=== PATIENT | male | born 1995 | race Caucasian/White ===

== ENCOUNTER 2025-02-22 10:59 | Observation (INO) | payer BC, SELFPAY ==
[2025-02-22] VITALS (10 sets, daily range): BP systolic 93–129; BP diastolic 48–86; PULSE 66–109; RESP 14–18; TEMP 35.6–37.2; O2SAT 94–100; BMI 21.8
[2025-02-22 11:31] LABS: Absolute Lymphocyte Count 1.18 X10^3/uL (0.83-4.51); Absolute Neutrophil Count 14.1 X10^3/uL (2.0-7.7); Basophil# 0.04 X10^3/uL; Basophil% 0.2 % (0-1); Eosinophil# 0.07 X10^3/uL; Eosinophils% 0.4 % (0-5); Hematocrit 43.7 % (40-54); Lymphocyte # 1.18 X10^3/ul (0.83-4.51); Mean Corp Hgb Conc 36.6 g/dL (32-36); Mean Corpuscular Hgb 32.5 pg (27.0-32.0); Mean Corpuscular Volume 88.6 fL (80-94); Mean Platelet Vol. 9.5 fl (6.2-12.0); Monocyte% 8.3 % (0-10); NRBC Flagged by Analyzer 0 % (0-5); Neutrophil # 14.12 X10^3/uL (2.7-7.7); Neutrophil % 83.7 % (47-70); Platelet Count 190 K/mm3 (150-450); RBC Distribution Width CV 11.3 % (11.6-14.6); RBC Distribution Width SD 36.2 fl (35.1-43.9); Red Blood Count 4.93 M/mm3 (4.6-6.2); White Blood Count 16.9 K/mm3 (4.4-11.0)
[2025-02-22 12:08] LABS: ALB/GLOB Ratio 1.6 RATIO (0.9-2.4); AST(SGOT) 26 U/L (<=37); Alanine Aminotransfer ALT/SGPT 34 U/L (<=46); Albumin, Serum 4.5 g/dL (3.5-5.0); Alkaline Phosphatase 51 U/L (40-129); Anion Gap 11 (5-15); BUN 12 mg/dL (4-19); Calcium,Total 9.4 mg/dL (7.6-11.0); Carbon Dioxide 26.2 mmol/L (21.0-32.0); Chloride 100 mmol/L (98-108); Creatinine, Serum 0.91 mg/dL (0.70-1.20); EST Glomerular Filtration Rate 117 (>60); Estimated Creatinine Clearance 115.98 ml/min (50-250); Globulin 2.7 g/dL (2.2-4.2); Glucose 102 mg/dL (70-99); Lipase 10 U/L (13-75); Potassium 3.9 mmol/L (3.3-5.1); Protein, Total 7.2 g/dL (5.9-8.4); Sodium Level 137 mmol/L (133-145)
--- NOTE | 2025-02-22 13:04 | CT_ITS ---
PROCEDURE: ABDOMEN/PELVIS W IV CONT ONLY 02/22/2025 REASON FOR EXAM: RLQ PAIN TECHNIQUE: ABDOMEN/PELVIS W IV CONT ONLY Coronal and Sagittal reconstruction series were provided. CONTRAST: 100 mL of Isovue 370 One or more dose reduction techniques were used (e.g., Automated exposure control, adjustment of the mA and/or kV according to patient size, use of iterative reconstruction technique. RADIATION DOSE SUMMARY: DLP: 504 mGycm COMPARISON: None FINDINGS: Limited sections of the lung bases demonstrate no focal pulmonary mass or consolidations. The liver, spleen, pancreas, and both adrenal glands demonstrate no acute findings. Mild hepatomegaly to 16.5 cm in CC dimension. The gallbladder is unremarkable. The stomach is unremarkable. Scattered small bowel wall thickening inflammation and fluid may reflect enteritis. Inflamed appendix with appendicolith ( series 2, image 82) concerning for acute appendicitis. No periappendiceal abscess. No perforation. No bowel obstruction. No colonic obstruction. There is no free air or significant free fluid. The kidneys are unremarkable. The urinary bladder is partially distended. The pelvic structures are intact. There is no solid pelvic mass. No significant lymphadenopathy. The aorta and IVC demonstrate no acute findings. Visualized osseous structures demonstrate no acute abnormality. L5 pars defect of the left. CT/Abdomen/Pelvis W IV Cont ONLY IMPRESSION: Inflamed appendix with appendicolith ( series 2, image 82) concerning for acute appendicitis. No periappendiceal abscess. No perforation. No bowel obstruction. Scattered small bowel wall thickening, inflammation, and fluid may reflect ente ritis. Reading Location: [id number]
[2025-02-22] MEDS: Ondansetron 4 MG/2 ML Vial IV (13:14)
[2025-02-22] MEDS: Morphine 4 MG/ML Syringe IV (13:14)
[2025-02-22 13:58] LABS: Bacteria 0 SEEN /hpf (None Seen); Mucous, Urine 0 SEEN /hpf (<or=2+); Red Blood Cells-Urine 0 SEEN /hpf (0-5); Squamous Epithelial Cells - UA 0 SEEN /hpf (0-5); White Blood Cells 0 SEEN /hpf (0-5)
--- NOTE | 2025-02-22 13:58 | EX.ED.DYSGE1 ---
HPI History of Present Illness Chief Complaint: Abd Pain Narrative Narrative: Patient is a 29-year-old male with no known significant past medical history who presents to the emergency department chief complaint of abdominal pain. Patient states that his abdominal pain started yesterday evening and states that it been progressively worsening. He states that he tried to take Pepto-Bismol without any relief. Patient denies any previous abdominal surgery denies any sick contacts. He rates his pain an 8 out of 10. PFSH PFSH Medical History no medical history Allergy/AdvReac Type Severity Reaction Status Date / Time No Known Allergies Allergy Verified 02/22/25 11:02 Social History Smoking Status: Never smoker ROS ROS ED ROS Narrative Constitutional: Denies fevers, chills, headaches, lightness, dizziness Eyes: Denies change of double vision blurry vision Cardiovascular: Denies chest pain Respiratory: Denies shortness of breath Abdomen: Complains of abdominal pain and nausea denies vomiting or diarrhea : Denies any urinary symptoms Neurological: Denies numbness, weakness, tingling Musculoskeletal: Denies back pain Skin: Denies rashes or lesions EXAM Physical Exam Narrative Exam Narrative: General: Patient was lying in bed rest comfortably did not appear to be acute distress Head: Atraumatic, normocephalic Eyes: PERRL bilaterally, EOMI bilateral, no conjunctival injection noted Neck: Soft, supple, trachea midline Cardiovascular: Regular rate and rhythm no murmurs gallops rubs noted Respiratory: Clear to auscultation bilaterally no rales rhonchi or wheezes noted Abdomen: Soft, nondistended, tenderness to palpation in the right lower quadrant no rebound or guarding on exam Extremities: +5/5 strength noted in the bilateral upper and lower extremities, radial pulse +2/4 in the bilateral extremities, no pedal edema on exam Neurological: Patient follow commands knew that he was at [facility] the year is 2024 Skin: Warm, dry, tact no rashes or lesions noted Const Vital Signs: 02/22/25 11:00 02/22/25 13:14 Temperature 96.0 F L Temperature Source Oral Pulse Rate 73 66 Respiratory Rate 16 18 Blood Pressure 128/83 H 129/83 H Blood Pressure Mean 98 98 Pulse Ox 100 100 Oxygen Delivery Method Room Air Room Air MDM MDM MDM Narrative Medical decision making narrative: Patient is a 29-year-old male who presented to the emergency department chief complaint of abdominal pain. On the differential diagnosis includes but not limited to appendicitis,, pancreatitis urinary tract infection, pyelonephritis,. Once workup is obtained reviewed he will be reevaluated. Patient got IV fluids morphine Zofran. Urolithiasis Patient CBC reviewed was significant for leukocytosis of 17,000, hemoglobin 16, platelet count was 190. Patient sodium was 137, Tessman 3.9, creatinine normal at 0.91. Patient's AST and ALT were 26 and 34 respectively patient CBC reviewed was significant for leukocytosis of 17,000, hemoglobin 16, platelet count was 190. Patient sodium is 137, potassium normal at 3.9, creatinine normal at 0.91. Patient's AST and ALT were 26 and 34 respectively lipase was noted be 10. Patient urinalysis reviewed showed no evidence of infection. Patient CT abdomen pelvis IV contrast reviewed and showed acute appendicitis no abscess no perforation. Dr. Lane physician psychologist research assistant Caren came down and discussed with me and states that they are planning on taking the patient to the operating room at 3:30 PM this afternoon depending the official read which once again this just came back and is confirmation of appendicitis. Requesting Zosyn which was ordered. Patient was updated the plan is agreeable all course concerns answered. Lab Data Labs: Laboratory Results - last 24 hr 02/22/25 02/22/25 11:20 13:51 WBC 16.9 H RBC 4.93 Hgb 16.0 Hct 43.7 MCV 88.6 MCH 32.5 H MCHC 36.6 H RDW Std Deviation 36.2 RDW Coeff of Linda 11.3 L Plt Count 190 MPV 9.5 Immature Gran % (Auto) 0.400 Neut % (Auto) 83.7 H Lymph % (Auto) 7.0 L Gates % (Auto) 8.3 Eos % (Auto) 0.4 Baso % (Auto) 0.2 Absolute Neuts (auto) 14.1 H Absolute Lymphs (auto) 1.18 Nucleated RBC % 0 Sodium 137 Potassium 3.9 Chloride 100 Carbon Dioxide 26.2 Anion Gap 11 BUN 12 Creatinine 0.91 Estim Creat Clear Calc 115.98 Est GFR (MDRD) Non-Af 117 BUN/Creatinine Ratio 13.0 Glucose 102 H Calcium 9.4 Total Bilirubin 0.90 AST 26 ALT 34 Alkaline Phosphatase 51 Total Protein 7.2 Albumin 4.5 Globulin 2.7 Albumin/Globulin Ratio 1.6 Lipase 10 L Urine Color Yellow Urine Clarity Clear Urine pH 6.5 Ur Specific [place] 1.010 Urine Protein 15 H Urine Glucose (UA) Normal Urine Ketones 5 H Urine Occult Blood Negative Urine Nitrite Negative Urine Bilirubin Negative Urine Urobilinogen Normal Ur Leukocyte Esterase Negative Urine RBC 0 SEEN Urine WBC 0 SEEN Ur Squamous Epith Cells 0 SEEN Urine Bacteria 0 SEEN Urine Mucus 0 SEEN Radiography Diagnostic Testing: Clinical Impression(s) from Imaging Studies Abdomen/Pelvis CT 02/22/25 13:04 IMPRESSION: Inflamed appendix with appendicolith ( series 2, image 82) concerning for acute appendicitis. No periappendiceal abscess. No perforation. No bowel obstruction. Scattered small bowel wall thickening, inflammation, and fluid may reflect enteritis. Reading Location: [facility] Discharge Plan Triage Chief Complaint: Abd Pain ED Provider: Samy Douglas Dx/Rx/DC Orders Clinical Impression: Appendicitis, Abdominal pain Primary Care Provider: Cony Esparza NP Referrals: Cony Esparza NP, INTERLOCKING INSTALLER-C [Primary Care Provider] - Print Language: Romansh Disposition Disposition: Acute Care [facility]
[2025-02-22 14:04] LABS: Color, Urine Yellow (Yellow); Glucose, Dipstick Normal (Normal); Ketone-Dipstick 5 mg/dl (Negative); Leukocyte Esterase-Dipstick Negative /ul (Negative); Nitrite-Dipstick Negative (Negative); Occult Blood-Urine Negative /ul (Negative); Protein-Dipstick 15 mg/dl (Negative); Urine Bilirubin Dipstick Negative (Negative); Urine Clarity Clear (Clear); Urine Urobilinogen Normal (Normal); Urine pH 6.5 (5.0 - 8.0)
--- NOTE | 2025-02-22 14:19 | PCM.PRE.AN2 ---
ASA Classification* ASA Classification ASA Classification: 2 and E Assessment & Plan Anesthesia* Anesthesia Assessment Anesthesia Assessment: Discussed sedation and/or anesthesia options, risks, benefits, and alternatives with patient/parents/legal guardian/POA. Questions invited. The patient/parents/legal guardian/POA seems to understand and agrees to proceed with anesthesia plan. Reviewed the physical assessment, medical history, allergy history and patient home medications list prior to surgery/procedure/anesthetic and documented any changes. Performed airway and anesthesia risk assessments. Anesthesia Type Anesthesia Type: General History Source History Obtained from:: Patient Anesthesia Focused Assessment* Temperature: 96.0 F Pulse Rate: 66 Blood Pressure: 129/83 Respiratory Rate: 18 Pulse Ox: 100 Airway Assessment Mouth opens: >3 cm Mallampati Score: I Teeth Condition: Intact Neck Range of motion (ROM): Full ROM Labs Anesthesia Preop lab: CBC WBC 16.9 K/mm3 (4.4-11.0) H 02/22/25 11:20 02/22/25 RBC 4.93 M/mm3 (4.6-6.2) 02/22/25 11:20 02/22/25 Hgb 16.0 g/dL (13.0-16.5) 02/22/25 11:20 02/22/25 Hct 43.7 % (40-54) 02/22/25 11:20 02/22/25 Plt Count 190 K/mm3 (150-450) 02/22/25 11:20 02/22/25 CHEMISTRY Potassium 3.9 mmol/L (3.3-5.1) 02/22/25 11:20 02/22/25 Sodium 137 mmol/L (133-145) 02/22/25 11:20 02/22/25 BUN 12 mg/dL (4-19) 02/22/25 11:20 02/22/25 Creatinine 0.91 mg/dL (0.70-1.20) 02/22/25 11:20 02/22/25 Glucose 102 mg/dL (70-99) H 02/22/25 11:20 02/22/25 COAG Pre-Assessment Diagnosis/Proposed Procedure Planned Operative Procedure(s): Laparascopic Appendectomy Anesthesia History Anesthesia History - sweet potato disintegrator: Anesthesia History - sweet potato disintegrator Hx Hospitalization Any Problems With Anesthesia Cholinesterase deficiency You/Your Family Experience fever (hyperthermia) with Relationship Recent Exposure to Contagious Disease Does patient have nerve stimulator Patient instructed to have device shut off --Does patient have Pacemaker or ICD? When Was Last Pacemaker Check QUESTION #4 FULL TEXT: You/Your Family Experience fever (hyperthermia) with Anesthesia Last Oral Intake Last Oral intake: Last Oral Intake NPO since Meds taken in AM with sips of water? Meds patient instructed to take am of surgery PONV PONV - sweet potato disintegrator: PONV - sweet potato disintegrator Female HX of Motion Sickness HX of N/V After Surgery Non-Smoker Duration of Surgery greater than 60 minutes Number of Risk Factors PONV Score Height & Weight Height & Weight: Anesthesia: Height & Weight Height 5 ft 10 in 02/22/25 11:00 Weight: 69.082 kg 02/22/25 11:00 Body Mass Index (BMI) 21.8 02/22/25 11:00 Respiratory Assessment Respiratory Assessment - sweet potato disintegrator: Respiratory Tract Infection Hx - sweet potato disintegrator Hx Respiratory Tract Infection STOP Sleep Apnea STOP Sleep Apnea - sweet potato disintegrator: STOP Sleep Apnea - sweet potato disintegrator Hx Hypertension Hx Sleep Apnea CPAP BIPAP Do you snore loudly (louder than talking or can be heard Do you often feel tired/ fatigued/ sleepy during daytime? Has anyone observed you stop breathing during sleep? STOP Results QUESTION #5 FULL TEXT : Do you snore loudly (louder than talking or can be heard through closed doors)? Tobacco Use History Tobacco Use History - sweet potato disintegrator: Tobacco Use History - sweet potato disintegrator Tobacco Use Smoking Status Never smoker 02/22/25 12:01 Hx Tobacco Use Years Smoking Packs Smoked per Day Smoking Cessation Date was within the last 15 years Hx Smoking Cessation Date Hx Smoking Cessation Counseling Hematologic Medial History Hematologic Hx - sweet potato disintegrator: Hematologic Medical Hx - size changer Hx of Blood Transfusion Hx of Transfusion in last 3 Months Date of Last Transfusion (if within last 3 months) Ever experience any problems with transfusion(s)? Specify any problems Hx of Preganancy in last 3 Months Nurse Filling Out Transfusion & Questions: Date: Time: Patient unable to answer at this time (ie. confused, unrespo /Reproduction History /Reproductive History - sweet potato disintegrator: /Reproductive Hx- sweet potato disintegrator Hx Now Gestational Age (in weeks): EDC: Hx Hx Para Hx Section SAB No 02/22/25 11:00 Active Medications Active Medications: Current Medications Generic Name Dose Route Start Last Admin Trade Name Freq PRN Reason Stop Dose Admin Sodium Chloride 1,000 mls @ 999 mls/hr 02/22/25 14:01 IV 02/22/25 15:01 .Q1H1M ONE PFSH Medical History no medical history Allergy/AdvReac Type Severity Reaction Status Date / Time No Known Allergies Allergy Verified 02/22/25 11:02 Social History Smoking Status: Never smoker Review of Systems (Anesthesia) ROS Narrative System reviewed and no additional complaints, except as documented.
[2025-02-22] MEDS: 0.9% Normal Saline (1000mL) 1,000 ML 999 ML IV (14:24)
[2025-02-22] MEDS: Piperacil/Tazobactam 3.375 GM in 0.9% Normal Saline (50mL MB+) 50 ML IV (14:34)
--- NOTE | 2025-02-22 14:45 | HP.PCM_ITS ---
HPI - General General Date of Admission: 02/22/25 Date of Service: 02/22/25 Chief Complaint: Right lower quadrant pain HPI Narrative ARELIS LYNCH, is a 29 M who presents with 1 day history of abdominal pain which radiated to the right lower quadrant. Patient states he tried Pepto- Bismol, which did not give any relief. He notes lack of appetite. He notes regular bowel movements. He denies any fever. He notes nausea. His only surgery was foot surgery. He denies any abdominal surgery. He takes no routine medications. He denies any allergies. He does not see a tetryl dissolver operator or lung specialist. CT scan of the ab/pel demonstrated: Inflamed appendix with appendicolith ( series 2, image 82) concerning for acute appendicitis. No periappendiceal abscess. No perforation. No bowel obstruction. Scattered small bowel wall thickening, inflammation, and fluid may reflect enteritis WBC is 16.9 PFSH Medical History no medical history Allergy/AdvReac Type Severity Reaction Status Date / Time No Known Allergies Allergy Verified 02/22/25 11:02 Social History Smoking Status: Never smoker ROS Constitutional Constitutional: Reports systems reviewed and no addt'l complaints, except as documented Eyes Eyes: Reports systems reviewed and no addt'l complaints, except as documented ENT HEENT: Reports systems reviewed and no addt'l complaints, except as documented Cardiovascular Cardiovascular: Reports systems reviewed and no addt'l complaints, except as documented Respiratory/Chest Respiratory/Chest: Reports systems reviewed and no addt'l complaints, except as documented Gastrointestinal Gastrointestinal: Reports systems reviewed and no addt'l complaints, except as documented Genitourinary Genitourinary: Reports systems reviewed and no addt'l complaints, except as documented Musculoskeletal Musculoskeletal: Reports systems reviewed and no addt'l complaints, except as documented Integumentary Integumentary: Reports systems reviewed and no addt'l complaints, except as documented Neurologic Neurologic: Reports systems reviewed and no addt'l complaints, except as documented Psychiatric Psychiatric: Reports systems reviewed and no addt'l complaints, except as documented Endocrine Endocrinology: Reports systems reviewed and no addt'l complaints, except as documented Hematologic/Lymphatic Hematologic/Lymphatic: Reports systems reviewed and no addt'l complaints, except as documented Allergic/Immunologic Allergic/Immunologic: Reports systems reviewed and no addt'l complaints, except as documented Vital Signs Vital Signs Vital Signs: 02/22/25 11:00 02/22/25 13:14 02/22/25 14:44 Temperature 96.0 F L 96.0 F L Temperature Source Oral Pulse Rate 73 66 66 Respiratory Rate 16 18 18 Blood Pressure 128/83 H 129/83 H 129/83 H Blood Pressure Mean 98 98 Pulse Ox 100 100 100 Oxygen Delivery Method Room Air Room Air Weight Weight: 152 lb 4.8 oz Body Mass Index (BMI) 21.8 Physical Exam Const alert, oriented x3 and no apparent distress General Appearance: ill appearing HEENT normocephalic and head/scalp atraumatic Eyes PERRL Neck full ROM Lymph Lymphatic: no lymphadenopathy noted Resp normal respiratory effort and clear to auscultation bilaterally Cardio regular rate and regular rhythm GI GI Narrative: Abdomen- soft, guarding with palpation of the entire abdomen. Pain with palpation in the right lower quadrant. no CVA tenderness Back/Spine no CVA tenderness Extremity normal to inspection Skin no rashes or lesions noted Neuro no focal motor deficits and no sensory deficits noted Psych mental status grossly normal, thought process normal and cooperative Results Lab / Micro Data 02/22/25 11:20 02/22/25 11:20 Labs: Laboratory Results - last 24 hr 02/22/25 11:20: WBC 16.9 H, RBC 4.93, Hgb 16.0, Hct 43.7, MCV 88.6, MCH 32.5 H, MCHC 36.6 H, RDW Std Deviation 36.2, RDW Coeff of Linda 11.3 L, Plt Count 190, MPV 9.5, Immature Gran % (Auto) 0.400, Neut % (Auto) 83.7 H, Lymph % (Auto) 7.0 L, [place] % (Auto) 8.3, Eos % (Auto) 0.4, Baso % (Auto) 0.2, Absolute Neuts (auto) 14.1 H, Absolute Lymphs (auto) 1.18, Nucleated RBC % 0, Sodium 137, Potassium 3.9, Chloride 100, Carbon Dioxide 26.2, Anion Gap 11, BUN 12, Creatinine 0.91, Estim Creat Clear Calc 115.98, Est GFR (MDRD) Non-Af 117, BUN/Creatinine Ratio 13.0, Glucose 102 H, Calcium 9.4, Total Bilirubin 0.90, AST 26, ALT 34, Alkaline Phosphatase 51, Total Protein 7.2, Albumin 4.5, Globulin 2.7, Albumin/Globulin Ratio 1.6, Lipase 10 L 02/22/25 13:51: Urine Color Yellow, Urine Clarity Clear, Urine pH 6.5, Ur Specific [place] 1.010, Urine Protein 15 H, Urine Glucose (UA) Normal, Urine Ketones 5 H, Urine Occult Blood Negative, Urine Nitrite Negative, Urine Bilirubin Negative, Urine Urobilinogen Normal, Ur Leukocyte Esterase Negative, Urine RBC 0 SEEN, Urine WBC 0 SEEN, Ur Squamous Epith Cells 0 SEEN, Urine Bacteria 0 SEEN, Urine Mucus 0 SEEN Imaging Radiology Impression Abdomen/Pelvis CT 02/22/25 13:04 IMPRESSION: Inflamed appendix with appendicolith ( series 2, image 82) concerning for acute appendicitis. No periappendiceal abscess. No perforation. No bowel obstruction. Scattered small bowel wall thickening, inflammation, and fluid may reflect enteritis. Reading Location: [id number] Assessment & Plan Assessment/Plan (1) Abdominal pain: QUALIFIERS: Abdominal location: generalized Qualified Code(s): R 10.84 - Generalized abdominal pain (2) Appendicitis: QUALIFIERS: Appendicitis type: acute appendicitis Acute appendicitis type: with localized peritonitis Appendicitis gangrene presence: u nspecified whether gangrene present Appendicitis perforation presence: without perforation Appendicitis abscess presence: without abscess Qualified Code(s): K35.30 - Acute appendicitis with localized peritonitis, without perforation or gangrene PLAN: Plan I am seeing this patient in conjunction with Dr. Lane. He will independently evaluate this patient. Patient has a 1 day history of right lower quadrant pain unrelieved by Pepto-Bismol. Pain increased and patient presented to the ED. CT scan was obtained and demonstrated acute appendicitis with an appendicolith along with an elevated white count with a left shift. Plan to place patient on Zosyn. Dr. Lane will plan to perform a laparoscopic appendectomy. Procedure details, risks and benefits have been explained. Patient and patient's mother agree with the proposed plan. Discussed possible admission post-operatively versus discharge to home. Patient has had the opportunity to ask and have questions answered. Patient verbally agrees to proceed. Thank you for allowing us to participate in this patient's care. Charges/Coding Visit Charges OBSV E&M: 30280 Observ/hosp same date L2
--- NOTE | 2025-02-22 14:50 | ED.RN ---
OR staff here to take pt to OR prior to completing OR checklist.
[2025-02-22] MEDS: Lactated Ringers 1,000 ML 30 ML IV (15:15)
--- NOTE | 2025-02-22 15:30 | APP_PTH ---
PATIENT: ARELIS LYNCH LOC: [facility] U#:[id number] AGE/SX: 29/M ROOM: CO318 RE02/22/[address]: Dr. Corby Lane MD : 1995 BED: 1 DIS: 02/23/2025 SPEC #: [id number] RECD: 02/23/25 10:39 STATUS: IKE RESimon #: [id number] DENISHA: 02/22/25 15:[address]: Corby Lane DEPT: SURGICAL PATHOLOGY RECD BY: Trent Rivas ENTERED: 02/23/25 11:27 SP TYPE: APPENDIX OTHR DR: Cony Esparza, [place] Tissues: A - Appendix, NOS Procedures: Surgery Specimen Level III HEADER OPERATION: Laparoscopic appendectomy PRE-OP DIAGNOSIS: Appendicitis TISSUE SUBMITTED: A- Appendix MICROSCOPIC DIAGNOSIS A. Appendix, appendicitis, appendectomy: * Acute appendicitis, fecalith. MICROSCOPIC DESCRIPTION Slides are reviewed. GROSS DESCRIPTION A. Received in formalin labeled with the patient's name and date of . Designated as appendix is a 5.5 x 1.2 cm appendix with a moderate amount of serosal fibrinous exudate and up to 2.5 cm of attached mesoappendix. The stapled margin is inked black and shaved. Sectioning reveals pink-red to gould, congested mucosa with a centrally located fecalith. Staffing Program Manager sections are submitted in [facility] 02/23/2025 CPT:29761
[2025-02-22] MEDS: Bupiv/Epi 0.25% 30 ML Vial (15:59)
--- NOTE | 2025-02-22 16:00 | OP.PCM_ITS ---
Operative Report (Standard) Operative Information Date of Procedure: 02/22/25 Pre-Operative Diagnosis: Acute appendicitis Post-Operative Diagnosis: Acute appendicitis Surgery/Procedure Performed: Laparoscopic appendectomy senior controls engineer: Yes Implementation Services Analyst: Rudy Yip Tasks completed by financial sales assistant: Opening & closing and Retracting Type of Anesthesia: General/Regional RN Documented Start/Stop Times: Operation Date: 02/22/25 15:30 Case Time Into Pre-Op 02/22/25 14:41 Anesthesia Start 02/22/25 15:33 Into Room 02/22/25 15:33 Out of Pre-Op 02/22/25 15:40 Procedure Start 02/22/25 15:47 Procedure Start Time: 15:47 Procedure Stop Time: 16:08 Select all DRAINS/GRAFTS/IMPLANTS that apply: None Estimated Blood Loss: 5 Specimen collected: Yes Description of specimen(s) removed: Appendix Description of surgery: The patient was brought into the operating room and general anesthesia was induced. The left arm was tucked and the abdomen was prepped and draped in usual sterile fashion. A small midline incision was made superior to the umbilicus and deepened to the level of the fascia. The fascia was elevated and incised. The peritoneum was also elevated and incised. A finger sweep was performed and a balloon trocar was placed into the abdomen and inflated. The abdomen was insufflated to 15 mmHg and the camera was inserted and the abdomen was inspected for any injuries upon entering the abdomen. There were none. The patient was placed in Trendelenburg position and a 5 mm ports placed in the left lower quadrant and suprapubic areas under direct visualization. Next using atraumatic bowel graspers the appendix was identified. The appendix was grasped and elevated and Enseal was used to take down the mesoappendix. A stapler was used to come across the base of the appendix. The appendix was then placed in Endo Catch bag and removed through the umbilical incision. The staple line was inspected and found to be hemostatic and intact. The 2 5 mm ports are removed under direct visualization. The balloon trocar was deflated and removed and all the air was removed from the abdomen. The umbilical incision fascia was closed with an 0 Vicryl [id number] suture. The incisions were then irrigated with saline and dried. Local anesthetic was injected into the incision sites. The skin incisions were then closed with interrupted 4-0 Monocryl suture and Steri- Strips. Bandages were applied and the patient was awoken and taken to PACU in stable condition. Patient tolerated the procedure well. Surgical Findings: Inflamed appendix Complications Complications: No Admit VTE Documentation VTE Mechan Device Prophylaxis: SCD's
--- NOTE | 2025-02-22 16:19 | PCM.POST.ANE ---
Anesthesia: Postop Eval I Current Vital Signs Temperature: 97.5 F Pulse Rate: 88 Blood Pressure: 112/48 Respiratory Rate: 18 Pulse Ox: 96 Oxygen Delivery Method: Room Air Assessment Airway patent: Yes Spontaneous unlabored respirations: Yes Mental status: Awake and Calm nausea: No Vomiting: No Anesthesia Complication: No Fluid Hydration Crystalloid volume administer (ml): 500 Total IV fluid infused: 500 Progress Note Anesthesia document: Postop Eval 1 completed: Yes
[2025-02-22] MEDS: 0.9% Normal Saline (1000mL) 1,000 ML 60 ML IV (17:16)
--- NOTE | 2025-02-22 18:04 | POSTOPAN2_ITS ---
Anesthesia Postop Eval I Sum Postop Eval Completion status Anesthesia document: Postop Eval 1 completed: Yes Anesthesia Postop Eval I Summary Anesthesia Postop Eval I Summary: Anesthesia Postop Eval I: Assessment Summary Airway patent Yes 02/22/25 16:20 MANAGER COMMUNITY [email or web address] Spontaneous unlabored Yes 02/22/25 16:20 MANAGER COMMUNITY DEVELOPMENT.JBOR respirations Mental status Awake,Calm 02/22/25 16:20 MANAGER COMMUNITY DEVELOPMENT.JBOR nausea No 02/22/25 16:20 MANAGER COMMUNITY DEVELOPMENT.JBOR Vomiting No 02/22/25 16:20 MANAGER COMMUNITY DEVELOPMENT.JBOR Anesthesia Postop Eval I: Fluid Summary Crystalloid volume administer 500 02/22/25 16:20 MANAGER COMMUNITY DEVELOPMENT.JBOR (ml) Colloids volume administered ( ml) Blood Product volume administered (ml) Total IV fluid infused 500 02/22/25 16:20 MANAGER COMMUNITY DEVELOPMENT.JBOR Anesthesia Postop Eval I: Summary Notes Anesthesia Complication No 02/22/25 16:20 MANAGER COMMUNITY DEVELOPMENT.JBOR Anesthesia Complication Comment: Post-operative progress note Anesthesia: Postop Eval II Evaluation Mental status: Awake Pain Level: 0 nausea: No Vomiting: No Complications Anesthesia Complication: No
--- NOTE | 2025-02-22 18:04 | PCM.POSTANE2 ---
Anesthesia Postop Eval I Sum Postop Eval Completion status Anesthesia document: Postop Eval 1 completed: Yes Anesthesia Postop Eval I Summary Anesthesia Postop Eval I Summary: Anesthesia Postop Eval I: Assessment Summary Airway patent Yes 02/22/25 16:20 REIMBURSEMENT DIRECTOR.[email or web address] Spontaneous unlabored Yes 02/22/25 16:20 REIMBURSEMENT DIRECTOR.JBOR respirations Mental status Awake,Calm 02/22/25 16:20 REIMBURSEMENT DIRECTOR.JBOR nausea No 02/22/25 16:20 REIMBURSEMENT DIRECTOR.JBOR Vomiting No 02/22/25 16:20 REIMBURSEMENT DIRECTOR.JBOR Anesthesia Postop Eval I: Fluid Summary Crystalloid volume administer 500 02/22/25 16:20 REIMBURSEMENT DIRECTOR.JBOR (ml) Colloids volume administered ( ml) Blood Product volume administered (ml) Total IV fluid infused 500 02/22/25 16:20 REIMBURSEMENT DIRECTOR.JBOR Anesthesia Postop Eval I: Summary Notes Anesthesia Complication No 02/22/25 16:20 REIMBURSEMENT DIRECTOR.JBOR Anesthesia Complication Comment: Post-operative progress note Anesthesia: Postop Eval II Evaluation Mental status: Awake Pain Level: 0 nausea: No Vomiting: No Complications Anesthesia Complication: No
[2025-02-22] MEDS: Acetaminophen 325 MG Tablet 650 MG PO (23:14)
[2025-02-22] MEDS: oxyCODONE 5 MG Tablet PO (23:15)
[2025-02-23 05:03] VITALS: BP 109/58; PULSE 54; RESP 16; TEMP 36.6; O2SAT 99
--- NOTE | 2025-02-23 07:53 | PCM.PN.SRG ---
Subjective Subjective Patient doing well with no complaints Objective Data Objective Data Vital Signs: Vital Signs Temp Pulse Resp BP Pulse Ox O2 Del Method 97.9 F 54 L 16 109/58 L 99 Room Air 02/23/25 05:03 02/23/25 05:03 02/23/25 05:03 02/23/25 05:03 02/23/25 05:03 02/23/25 05:03 Oxygen Delivery Method Room Air Weight: 152 lb 4.8 oz Body Mass Index (BMI) 21.8 Intake & Output: Intake and Output for Last 24 Hours 02/21/25 02/22/25 02/23/25 23:59 23:59 23:59 Intake Total 1110.5 / 1710.5 1000 / 1000 Output Total Balance 1100.5 / 1700.5 1000 / 1000 Lab / Micro Data 02/22/25 11:20 02/22/25 11:20 Labs: Laboratory Results - last 24 hr 02/22/25 11:20: WBC 16.9 H, RBC 4.93, Hgb 16.0, Hct 43.7, MCV 88.6, MCH 32.5 H, MCHC 36.6 H, RDW Std Deviation 36.2, RDW Coeff of Linda 11.3 L, Plt Count 190, MPV 9.5, Immature Gran % (Auto) 0.400, Neut % (Auto) 83.7 H, Lymph % (Auto) 7.0 L, [place] % (Auto) 8.3, Eos % (Auto) 0.4, Baso % (Auto) 0.2, Absolute Neuts (auto) 14.1 H, Absolute Lymphs (auto) 1.18, Nucleated RBC % 0, Sodium 137, Potassium 3.9, Chloride 100, Carbon Dioxide 26.2, Anion Gap 11, BUN 12, Creatinine 0.91, Estim Creat Clear Calc 115.98, Est GFR (MDRD) Non-Af 117, BUN/Creatinine Ratio 13.0, Glucose 102 H, Calcium 9.4, Total Bilirubin 0.90, AST 26, ALT 34, Alkaline Phosphatase 51, Total Protein 7.2, Albumin 4.5, Globulin 2.7, Albumin/Globulin Ratio 1.6, Lipase 10 L 02/22/25 13:51: Urine Color Yellow, Urine Clarity Clear, Urine pH 6.5, Ur Specific [place] 1.010, Urine Protein 15 H, Urine Glucose (UA) Normal, Urine Ketones 5 H, Urine Occult Blood Negative, Urine Nitrite Negative, Urine Bilirubin Negative, Urine Urobilinogen Normal, Ur Leukocyte Esterase Negative, Urine RBC 0 SEEN, Urine WBC 0 SEEN, Ur Squamous Epith Cells 0 SEEN, Urine Bacteria 0 SEEN, Urine Mucus 0 SEEN Radiography Diagnostic Testing: Radiology Impression Abdomen/Pelvis CT 02/22/25 13:04 IMPRESSION: Inflamed appendix with appendicolith ( series 2, image 82) concerning for acute appendicitis. No periappendiceal abscess. No perforation. No bowel obstruction. Scattered small bowel wall thickening, inflammation, and fluid may reflect enteritis. Reading Location: [facility] Physical Exam Const oriented x3 and no apparent distress Resp normal respiratory effort GI soft to palpation and non-tender Assessment & Plan Assessment/Plan (1) Appendicitis: QUALIFIERS: Appendicitis type: acute appendicitis Acute appendicitis type: with localized peritonitis Appendicitis gangrene presence: unspecified whether gangrene present Appendicitis perforation presence: without perforation Appendicitis abscess presence: without abscess Qualified Code(s): K35.30 - Acute appendicitis with localized peritonitis, without perforation or gangrene PLAN: Patient is postoperative day 1 from appendectomy. Patient is doing well and tolerating diet. I will discharge him home today. Corby Lane MD Pager: [facility] [address] [place] [address], [address] [place] [address] Office:
--- NOTE | 2025-02-23 07:54 | DCINST_ITS ---
Discharge Instructions Procedure Appendectomy Diet Discharge Diet: Light diet - advance as tolerated Activity Discharge Activity: May Not Drive (for 2-3 days or while taking narcotic pain medications.) May shower in (days): 1 Lifting Restrictions: 20 lbs for 2 weeks Dressing / Incision Call your doctor if your incision/area has: Continuous Slow Oozing, Sudden Increased Bleeding, Increased Pain/ Swelling, Increased Redness and Foul Smelling Discharge Call your doctor if you observe: Fever of 101 or Higher Suture Line Care: Avoid Pulling/Pushing and Avoid Pinching/Bending Remove Dressing in: 2 days Cleanse incision/area with: Soap & Water Additional Dressing/Incision Instructions:: Keep dressing clean and dry. Change or remove dressing in 2 days. Leave steri strips for 1 week. May protect with a gauze bandaid. Follow Up Care Please Follow Up With: Corby Lane MD When: Please call to schedule 2 week follow up appointment. [phone] Test Results: Test results from this visit will be discussed in further detail at your follow- up appointment, if applicable. Discharge Plan Admission Admit Date/Time: 02/22/25 16:02 Attending Provider: Corby Lane Primary Care Provider: Cony Esparza NP Discharge Orders/Prescriptions Prescriptions: New oxycodone 5 mg Tablet 5 - 10 mg PO Q4H PRN PRN (Reason: Pain Score 4-10) 5 Days Qty: 14 0RF Referrals / Follow Up: Cony Esparza NP, CALCULATION REVIEWER-C [Primary Care Provider] - Disposition Disposition (needs filled in before D/C Order can be placed): Home, Self Care
[2025-02-23] MEDS: oxyCODONE 5 MG Tablet PO (08:30)
[2025-02-23 09:03] VITALS: BP 96/60; PULSE 68; RESP 16; TEMP 36.6; O2SAT 99
--- NOTE | 2025-02-23 10:08 | PHA.DC.MC.R ---
Pharmacy [facility] Counseling Pharmacy Service has performed discharge medication reconciliation and counseling for this patient. 1. OXYCODONE 5-10MG PO Q4H PRN PAIN The patient's discharge medication list was reviewed for discrepancies and discrepancies were resolved. The patient was counseled on the following discharge medications and changes in medications for homegoing were reviewed. The Reason for Use, instructions for use, and potential side effects were reviewed for all new medications. The patient's questions regarding all of their medications were answered. The patient was able to verbally demonstrate an understanding of their discharge medications. Medications at Discharge Home Medications oxycodone 5 mg tablet 5 - 10 mg (1 - 2 x 5 mg) PO Q4H PRN PRN Pain Score 4-10 5 days #14 tabs 02/23/25
--- NOTE | 2025-02-24 07:36 | DS.PCM_ITS ---
Providers Date of Admission: 02/22/25 Primary Care Physician: PARADISE Bowman Reason For Visit: APPENDICITIS Diagnosis Discharge Diagnosis (1) Appendicitis: Status: Acute Code(s): K37 - Unspecified appendicitis Qualifiers: Appendicitis type: acute appendicitis Acute appendicitis type: with localized peritonitis Appendicitis gangrene presence: unspecified whether gangrene present Appendicitis perforation presence: without perforation A ppendicitis abscess presence: without abscess Qualified Code(s): K35.30 - Acute appendicitis with localized peritonitis, without perforation or gangrene Plan: Patient is postoperative day 1 from appendectomy. Patient is doing well and tolerating diet. I will discharge him home today. Corby Lane MD Pager: [facility] [address] [place] [address], [address] [place] [address] Office: Medications at Discharge Home Medications oxycodone 5 mg tablet 5 - 10 mg (1 - 2 x 5 mg) PO Q4H PRN PRN Pain Score 4-10 5 days #14 tabs 02/23/25 Hospital Course Operations appendectomy Summary of Care Provided Hospital Course: Patient presented with acute appendicitis. He was taken for surgery and the following day he was discharged home Weight / BMI Weight Weight: 152 lb 4.8 oz Body Mass Index (BMI) 21.8 ABG / Lab / Microbiology Data 02/22/25 11:20 02/22/25 11:20 D/C Instructions Discharge Diet: Light diet - advance as tolerated May shower in (days): 1 Call your doctor if your incision/area has: Continuous Slow Oozing, Sudden Increased Bleeding, Increased Pain/ Swelling, Increased Redness and Foul Smelling Discharge Call your doctor if you observe: Fever of 101 or Higher Suture Line Care: Avoid Pulling/Pushing and Avoid Pinching/Bending Cleanse incision/area with: Soap & Water Additional Dressing/Incision Instructions: Keep dressing clean and dry. Change or remove dressing in 2 days. Leave steri strips for 1 week. May protect with a gauze bandaid. DC O2, CPAP, BIPAP Needs Home O2 Discharge instructions: No Please Follow Up With: Corby Lane MD When: Please call to schedule 2 week follow up appointment. [phone] Meaningful Use Info Meaningful Use Meaningful Use Diagnoses (Choose all that apply): None applicable Ischemic Stroke Statin Dosing Therapy Reference: STATIN DOSE THERAPY REFERENCE: * Patients > 75 years receive moderate or high dose statin therapy. * Patients 75 years or YOUNGER should receive HIGH intensity statin dose unless contraindicated. You will be required to document reason for non-treatment if statin daily dose does not meet guidelines. HIGH DOSE STATIN THERAPY DAILY Atorvastatin > than or = to 40 mg Rosuvastatin > than or = to 20 mg Amlodipine + Atorvastatin > than or = to 2.5/40 mg Ezetimibe + Simvastatin 10/80 mg Simvastatin 80mg Discharge Plan Admission Admit Date/Time: 02/22/25 16:02 Attending Provider: Corby Lane Primary Care Provider: Cony Esparza NP Discharge Orders/Prescriptions Prescriptions: New oxycodone 5 mg Tablet 5 - 10 mg PO Q4H PRN PRN (Reason: Pain Score 4-10) 5 Days Qty: 14 0RF Referrals / Follow Up: Cony Esparza NP, COSMETICS MACHINE OPERATOR-C [Primary Care Provider] - Disposition Disposition (needs filled in before D/C Order can be placed): Home, Self Care
== END 2025-02-23 10:36 | disposition home or self-care (01) ==
LOC: ED 14:36 → SDC 14:43 → AC 14:43 → SDC 16:11 → MS3 16:11
PROVIDERS: Admitting Provider Surgery; Emergency Provider Emergency Medicine; PCP Nurse Practitioner; Visit Provider Surgery
PROC: 0DTJ4ZZ Resection of Appendix, Percutaneous Endoscopic Approach (ICD-10-PCS; CPT 44970; principal; 2025-02-22 15:10)
DX: K35.30 Acute appendicitis with localized peritonitis, without perforation or gangrene (principal); N20.9 Urinary calculus, unspecified
CPT/HCPCS: 44970; 00840; 74177; 80053; 81001; 83690; 85025; 88304; 96374; 96375; 99221; 99284; Q9967; A4216; G0378; J2405